=== PATIENT | female | born 1995 | race Caucasian/White ===

== ENCOUNTER → 2017-08-05 | Outpatient (CLI) | payer BC ==
--- NOTE | 2017-08-05 13:41 | RADIOLOGY IMAGING REPORT ---
FACILITY: [facility] [place] PATIENT NAME: Maggi Isbell : 1995 MR: [id number] V: [id number] EXAM DATE: ORDERING PHYSICIAN: DEANGELO BRUNSON TECHNOLOGIST: [facility] Patient: Maggi Isbell : 1995 Visit/Account:[id number] Date of Sevice: 08/05/2017 Technique: LUMBAR SPINE 4 VIEWS HISTORY: Lower back pain Comparison studies: None FINDINGS: There is no acute fracture. 5 nonrib-bearing lumbar type vertebral bodies are noted. The vertebral body heights, alignment and heights are maintained. Present is a probable right L5-S1 pars defect. Incidentally noted is an IUD. IMPRESSION: 1. No acute osseous process. 2. Probable right L5-S1 pars defect. Report Dictated By: John Bowden DO at 08/05/2017 1:35 PM Report E-Signed By: John Bowden DO at 08/05/2017 1:38 PM WSN:[id number]
== END ==
LOC: RAD 12:54
PROVIDERS: ATTEND Emergency Medicine Sports Medicine
DX: M54.5 Low back pain (principal)
CPT/HCPCS: 72120